=== PATIENT | female | born 1955 | race Caucasian/White ===

== ENCOUNTER 2018-11-16 11:37 | Emergency (ER) | payer OTHER ==
[~2018-11-16] VITALS: Wt 74.5 kg
[2018-11-16] MEDS ORDERED: PROPOFOL 200 MG INJ IV STA (13:56)
[2018-11-16] MEDS ORDERED: KETAMINE (50 MG/ML) 10 ML VIAL ONE (16:38)
[2018-11-16 16:39] VITALS: BP 151/96; PULSE 85; RESP 13
[2018-11-16] MEDS ORDERED: KETAMINE HCL (50 MG/ML) 1ml syringe IV STA (16:42)
[2018-11-16] MEDS ORDERED: ONDANSETRON 4 MG INJ IV STA (16:42)
[2018-11-16] MEDS ORDERED: BUPIVACAINE 0.5% 30 ML VIAL INJ ONE (17:00)
[2018-11-16] MEDS ORDERED: LIDOCAINE 1% (MPF) 30 ML INJ INJ ONE (17:00)
[2018-11-16] MEDS ORDERED: TRAM50TA2 PO (18:38)
--- NOTE | 2018-11-16 18:42 | ERD ---
ER Documentation Chief Complaint Chief Complaint L SHOULDER PAIN FROM A FALL LAST NIGHT. GOT WORSE TODAY,NO DEFORMITY HPI 63-year-old female presenting with left shoulder pain after a ground-level trip and fall last night. Her pain was severe all night long and felt worse today, so she came in for evaluation. She complains of pain in her left shoulder radiating down the left arm, 9/ 10, worse with any type of movement. No associated numbness or tingling. Denies any other injuries ROS All systems reviewed and are negative except as per history of present illness. Medications Home Meds Active Scripts Tramadol HCl (Tramadol HCl) 50 Mg Tablet, 50 MG PO Q6 PRN for PAIN, #20 TAB Prov:GOMEZ CLIFTON MD 11/16/18 Allergies Allergies: Coded Allergies: Penicillins (Verified Allergy, Severe, UNK, 11/16/18) pt states she had a reaction when she was a baby, unknown reaction ibuprofen (Verified Allergy, Severe, hives, 11/16/18) naproxen (Verified Allergy, Severe, hives, 11/16/18) PMhx/Soc Medical and Surgical Hx: pt denies Medical Hx, pt denies Surgical Hx History of Surgery: No Anesthesia Reaction: No Hx Neurological Disorder: No Hx Respiratory Disorders: No Hx Cardiac Disorders: No Hx Psychiatric Problems: No Hx Miscellaneous Medical Probl: No Hx Alcohol Use: Yes (occasionally) Hx Substance Use: No Hx Tobacco Use: Yes Smoking Status: Current every day smoker FmHx Family History: No diabetes Physical Exam Vitals Vital Signs Date Temp Pulse Resp B/P (MAP) Pulse Ox O2 O2 Flow FiO2 Time Delivery Rate 11/16/18 85 13 151/96 90 Nasal 16:39 (114) Cannula 11/16/18 88 22 128/112 92 Nasal 16:30 (117) Cannula 11/16/18 96 23 141/94 96 Nasal 16:27 (110) Cannula 11/16/18 98 20 140/123 98 Nasal 16:20 (129) Cannula 11/16/18 98 19 152/105 98 Nasal 16:00 (121) Cannula 11/16/18 89 16 139/83 89 Nasal 15:30 (101) Cannula 11/16/18 89 19 141/94 88 Nasal 15:20 (110) Cannula 11/16/18 92 23 141/93 91 Nasal 15:10 (109) Cannula 11/16/18 100 4.0 15:04 11/16/18 92 23 130/113 96 Nasal 15:00 (119) Cannula 11/16/18 95 23 125/91 100 Nasal 14:50 (102) Cannula 11/16/18 98 20 133/94 100 Nasal 14:47 (107) Cannula 11/16/18 100 20 141/113 100 Nasal 14:37 (122) Cannula 11/16/18 98.5 98 20 154/90 98 11:41 (111) Physical Exam Const: No acute distress Head: Atraumatic Eyes: Normal Conjunctiva ENT: Normal External Ears, Nose and Mouth. Neck: Full range of motion. No meningismus. Resp: Clear to auscultation bilaterally Cardio: Regular rate and rhythm, no murmurs Abd: Soft, non tender, non distended. Normal bowel sounds Skin: No petechiae or rashes Back: No midline or flank tenderness Ext: No cyanosis, or edema. Left shoulder with sulcus sign, held in abduction. Unable to range shoulder secondary to pain. Full range of motion of the wrist and elbow of the left upper extremity. All other extremities atraumatic, normal to inspection and palpation. 2+ radial pulses bilaterally. Sensations intact in all distributions of the upper extremity, including over the deltoid. Neur: Awake and alert Psych: Normal Mood and Affect Results 24 hrs Current Medications Medications Dose Sig/Lisandra Start Time Status Last (Trade) Ordered Route PRN Stop Time Admin Dose Reason Admin Propofol 140 mg ONCE STAT 11/16/18 DC (Diprivan) IV 13:56 11/16/18 13:58 Ketamine 500 mg STK-MED 11/16/18 DC HCl ONCE .ROUTE 16:38 (Ketalar) 11/16/18 16:39 Ondansetron 4 mg ONCE STAT 11/16/18 DC 11/16/18 HCl (Zofran IV 16:42 16:54 Inj) 11/16/18 16:43 Ketamine 22 mg ONCE STAT 11/16/18 DC 11/16/18 HCl IV 16:42 16:59 (Ketamine 11/16/18 16:43 HCl) Bupivacaine 20 ml ONCE ONCE 11/16/18 DC HCl INJ 17:00 (Marcaine 11/16/18 17:01 0.5%) Lidocaine 30 ml ONCE ONCE 5/18/19 DC (Xylocaine INJ 17:00 1% (Mpf)) 11/16/18 17:01 Procedures/MDM EMERGENT LABS AND DIAGNOSTIC STUDIES: Radiology Results as interpreted by Radiology below were reviewed by Cesar samson MD: X-ray left shoulder: X-ray left clavicle shows no acute clavicular fracture X-ray left humerus shows acute fracture dislocation of the humeral head Initial Nursing notes reviewed. Previous Medical Records requested via the Electronic Health Record. EMERGENCY DEPARTMENT COURSE / MEDICAL DECISION MAKING: Procedural Sedation #1: Pre-assessment performed. See preceding complete history and physical for details. Time out performed. See sedation documentation for details. Risk, benefits and alternatives were discussed with the patient. Medication(s): Propofol Complications: No hypoxic or apneic events Recovered without incident. A minimum of 16 minutes of face to face time was performed including preparation, sedation and recovery time. X-ray Shoulder 2V Interpreted by me: Bones: Fracture of greater tuberosity noted with displacement Joints: Persistent anterior dislocation of the glenohumeral joint Foreign body: None Shoulder Reduction by me: Anesthesia: Sedation with propofol Location: Left shoulder joint, anterior dislocation Technique: External rotation, Traction-countertraction Results: Unable to reduce joint Compl: Neurovascularly intact post procedure. Post-reduction X-ray Shoulder 2V Interpreted by me: Bones: Fracture of greater tuberosity of humeral head Joints: Persistent anterior shoulder dislocation of previously noted dislocation Foreign body: None Procedural Sedation #2: Pre-assessment performed. See preceding complete history and physical for details. Time out performed. See sedation documentation for details. Risk, benefits and alternatives were discussed with the patient. Medication(s): Propofol Complications: No hypoxic or apneic events Recovered without incident. A minimum of 16 minutes of face to face time was performed including preparation, sedation and recovery time. Departure Diagnosis: Primary Impression: Fracture of greater tuberosity of left humerus Encounter type: initial encounter Fracture type: closed Fracture al ignment: displaced Qualified Codes: S42.252A - Displaced fracture of greater tuberosity of left humerus, initial encounter for closed fracture Additional Impression: Dislocation of left shoulder joint Encounter type: initial encounter Qualified Codes: S43.005A - Unspecified dislocation of left shoulder joint, initial encounter Condition: Stable Patient Instructions: Dislocation, Other Joint, Fracture, Shoulder Additional Instructions: You will need to see an orthopedic surgeon as soon as possible tomorrow. You will likely need to go to surgery to put your shoulder back in place and to fix your fracture. GOMEZ CLIFTON MD November 16, 2018 18:42
--- NOTE | 2018-11-16 18:46 | CONS ---
Assessment/Plan Assessment/Plan Hospital Course (Demo Recall) 63-year-old female with left anterior shoulder dislocation and fracture of the greater tuberosity. She is neurovascular intact. Unfortunately the closed reduction under sedation by the emergency department and by myself was unsuccessful. In addition I third attempt with a different technique to reduce the shoulder was performed without sedation also failed. At this point I recommended and offered to the patient to bring her to the operating room tonight for another attempted closed reduction of the fracture dislocation. I explained to her than operating room additional paralytic medications can be given and I can use live fluoroscopy to increase the success of reduction. If that reduction failed she would require an open reduction. At this point the patient did not want to go to the operating room. She stated that she had enough attempts here and she was in pain and tired of being in the emergency department. She stated that her plan is to go home to [place] tomorrow morning at [address] immediately to her local hospital so she can be near home if she needs to go to the operating room. I explained to her the risks of delaying reduction which include but not limited to neurovascular injury, traumatic arthritis, difficulty and future reduction, and pain. She understood these but still wished to leave AGAINST MEDICAL ADVICE and go to her local hospital tomorrow morning. Plan: Sling Nonweightbearing left upper extremity pain control Ice Patient to sign AMA form and go to her local hospital tomorrow morning Assessment/Plan (Daily) Procedure note: Procedure 1: The patient was placed under conscious sedation by the emergency department. Once the patient was relaxed a bedsheet was placed around the patient's chest for an quality assurance assistant pull countertraction. All counts traction was being placed I held the arm in about 45 degrees abduction and pulled axial traction with external and internal rotation in order to reduce the humeral head into the glenoid. The humeral head could not be palpated secondary to body habitus in order to guide it into the joint. No reduction could be felt. The joint did not have smooth range of motion. X-rays were taken while patient was sedated and demonstrated failed reduction. Additional attempts were the patient was still sedated was performed again with failure. Therefore the patient was awoken from sedation. Patient was neurovascular intact when she was fully awake. Procedure 2: Patient was given an intra-articular hematoma block. A direct lateral approach was used. The sulcus was palpated skin was cleaned with alcohol. 5 cc of 1% lidocaine was used to numb the skin and subcutaneous tissue. This was followed by the intra-articular block. A 22-gauge needle was placed intra-articularly hematoma was pulled back and a 10 mL of1:1 mixture of 1% lidocaine and 0.5% bupivacaine was injected for anesthetic. The patient was then placed prone on the gurney with the left upper extremity pain towards the floor. 10 pounds of traction was placed on the left upper extremity to assist in reduction. The patient was left in traction for 15 minutes. At this time scalp manipulation as well as reduction maneuver was attempted. This again failed and was confirmed on x-ray. Consultation Date/Type/Reason Admit Date/Time Date of Consultation: November 16, 2018 Reason for Consultation Left shoulder fracture dislocation Date/Time of Note DATE: 11/16/18 TIME: 18:28 Hx of Present Illness This is 63-year-old female who presented emergency department after a fall yesterday when she stepped off a curb. She fell directly onto her left shoulder. She had significant left shoulder pain swelling and bruising. At first she did not think the pain was too bad so she did not go to the emergency department. However the pain continued to worsen and she had inability to move the shoulder so she came to the emergency department today. She is visiting from out of town. She lives in [place]. Original plan was to return home early tomorrow morning. She denies any numbness and tingling in her left upper ext remity. Denies any previous shoulder injury. Prior to orthopedics being consulted in the emergency department did sedate and attempted reduction however it failed. Patient denies fever, chills, shortness of breath, chest pain, nausea/vomiting, constipation, diarrhea, numbness, and tingling. Past Medical History Psoriasis Allergies: Coded Allergies: Penicillins (Verified Allergy, Severe, UNK, 11/16/18) pt states she had a reaction when she was a baby, unknown reaction ibuprofen (Verified Allergy, Severe, hives, 11/16/18) naproxen (Verified Allergy, Severe, hives, 11/16/18) Past Surgical History Past Surgical Hx: noncontributory Family History Significant Family History: no pertinent family hx Social History Smoking Status: Current every day smoker Drug Use: none Exam/Review of Systems Exam Vitals Vital Signs Date Temp Pulse Resp B/P (MAP) Pulse Ox O2 O2 Flow FiO2 Time Delivery Rate 11/16/18 85 13 151/96 90 Nasal 16:39 (114) Cannula 11/16/18 4.0 15:04 11/16/18 98.5 11:41 Exam General: Awake, alert, in no acute distress, pleasant and cooperative Heart: regular rhythm Lungs: breathing comfortably, no tachypnea or dyspnea MUSCULOSKELETAL: Left upper extremity: Skin is intact. There is ecchymosis over the anterior shoulder. There is tenderness to palpation over the entire shoulder. Difficult to assess shoulder deformity given patient's large body habitus. Shoulder is held in neutral rotation. Held in adduction. Sensation intact to light touch in a median, ulnar, radial, and axillary distribution. Motor is intact in a median, ulnar, radial, anterior interosseous, and posterior interosseous nerve distribution. Radial and ulnar artery are +2. Wrist extension and flexion are intact. Compartments are soft. Imaging Imaging 2 views of the left shoulder plus an axillary view demonstrate an anteriorly and medially dislocated glenohumeral joint with a large displaced greater tuberosity fracture. Postreduction films do not demonstrate any change. WILDA LAURENT MD November 16, 2018 18:40
== END 2018-11-16 18:54 | disposition left against medical advice (07) ==
LOC: FTE 11:37 → E/R 18:54
DX: S42.252A Displaced fracture of greater tuberosity of left humerus, initial encounter for closed fracture (principal); S43.005A Unspecified dislocation of left shoulder joint, initial encounter; F17.210 Nicotine dependence, cigarettes, uncomplicated; W01.0XXA Fall on same level from slipping, tripping and stumbling without subsequent striking against object, initial encounter; Y92.9 Unspecified place or not applicable
CPT/HCPCS: 23650; 73000; 73030; 73060; 94770; 96374; 96375; 99285; J2405